=== PATIENT | female | born 1965 | race Caucasian/White ===

== ENCOUNTER → 2017-10-16 | Outpatient (CLI) | payer OTHER ==
[~2017-10-16] MED LIST: HYDACE5 PO; NAPR500 PO
[2017-10-16 16:33] LABS: Free Thyroxine 0.91 ng/dL (0.70-1.60); Thyroid Stimulating Hormone 2.222 uIU/mL (0.360-4.800)
== END | disposition home or self-care (01) ==
LOC: LAB SHORT 16:03 → LAB EV 16:03
PROVIDERS: Internal Medicine
DX: R63.5 Abnormal weight gain (principal)
CPT/HCPCS: 84439; 84443

== ENCOUNTER 2022-08-09 05:01 | Inpatient (IN) | payer OTHER ==
[~2022-08-09] VITALS: Ht 149.9 cm; Wt 69.0 kg
[2022-08-09 05:36] LABS: BASOPHILS PERCENT AUTO 1 % (0-2); EOSINOPHILS PERCENT AUTO 3 % (0-6); Hematocrit 47.8 % (33.0-51.0); Hemoglobin 16.5 g/dL (11.5-16.0); IMMATURE GRAN ABSOLUTE AUTO 0.02 K/mm3 (0.00-0.10); IMMATURE GRAN PERCENT AUTO 0 % (0-1); LYMPHOCYTES PERCENT AUTO 48 % (21-46); MONOCYTES ABSOLUTE AUTO 0.59 K/mm3 (0.16-1.47); MONOCYTES PERCENT AUTO 6 % (4-13); Mean Corpuscular HGB 32.7 pg (26.0-34.0); Mean Corpuscular HGB Conc 34.5 g/dL (31.5-36.5); Mean Corpuscular Volume 95 fL (80-100); Mean Platelet Volume 9.3 fL (9.1-12.4); NEUTROPHILS PERCENT AUTO 41 % (41-73); Platelet Count 351 K/mm3 (150-400); RDW Coefficient Variation 13.2 % (11.7-14.2); RDW Standard Deviation 46.5 fL (35.1-46.3); Red Blood Cell Count 5.05 M/mm3 (3.80-5.20); White Blood Cell Count 9.71 K/mm3 (4.00-11.30)
[2022-08-09 06:11] LABS: Influenza A, PCR NEGATIVE (NEGATIVE); Influenza B, PCR NEGATIVE (NEGATIVE); Resp Syncytial Virus, PCR NEGATIVE (NEGATIVE); SARS-Cov-2 (COVID-19) PCR, MMC NEGATIVE (NEGATIVE)
[2022-08-09 06:13] LABS: Alanine Aminotransfer (ALT/SGP 26 U/L (12-78); Albumin, Blood 3.8 g/dL (3.4-5.0); Alk Phos 94 U/L (50-136); Anion Gap 9 mmol/L (6-16); Aspartate Aminotrans (AST/SGOT 23 U/L (12-37); Bilirubin, Total 0.2 mg/dL (0.1-1.0); Blood Urea Nitrogen 14 mg/dL (8-24); Bun/Creatinine Ratio 19.7 (12.0-20.0); CO2, Blood 21 mmol/L (21-32); Calcium, Blood 9.2 mg/dL (8.5-10.1); Chloride, Blood 111 mmol/L (98-108); Creatinine, Blood 0.71 mg/dL (0.40-1.00); Ethanol (Alcohol), Blood, Med <3 mg/dL; Globulin, Blood 3.8 g/dL (2.2-4.0); Glomerular Filtration Rate 100 (60-); Glucose, Blood 123 mg/dL (70-99); Potassium, Blood 4.4 mmol/L (3.5-5.5); Sodium, Blood 141 mmol/L (136-145); Total Protein, Blood 7.6 g/dL (6.4-8.2)
[2022-08-09 10:23] LABS: International Normalized Ratio 1.09; Prothrombin Time Results 11.4 Sec (9.7-11.5)
[2022-08-09 10:32] LABS: CHOL/HDL RATIO 5.3; Cholesterol 221 mg/dL (50-200); HDL Cholesterol 42 mg/dL (>39); LDL/HDL RATIO 3.9; Low Density Lipoprotein Chol 163 mg/dL (0-110); Triglycerides 78 mg/dL (30-160); Very Low Density Lipoprot Chol 15 mg/dL (6-32)
[2022-08-09 15:32] LABS: U Amphetamine Screen Not Detected; U Barbituate Screen Not Detected; U Benzodiazapine Screen Not Detected; U Buprenorphine Screen Not Detected; U Cannabinoids Screen DETECTED; U Cocaine Screen Not Detected; U Methadone Screen Not Detected; U Methamphetamine Screen Not Detected; U Opiates Screen Not Detected; U Oxycodone Screen Not Detected; U Phencyclidine Screen Not Detected; U Propoxyphene Screen Not Detected
--- NOTE | 2022-08-09 18:35 | NUR ---
END OF SHIFT SUMMARY NEURO: A/O X4, TEARFUL AT TIMES, OVERWHELMED WITH DIAGNOSIS BUT CALMS WITH DISCUSSION. CARDIAC: SR, ECTOPY NOTED, REPORTED TO DR. SHIELDS W/NO NEW ORDERS. EKG DONE UPON ARRIVAL FROM ACADEMIC ADMINISTRATOR. BP WNL. COREG STARTED. RESP: ROOM AIR, LUNGS CTA, O2 SAT > 95% GI: DENIES NAUSEA, POOR APPETITE, DRINKING FLUIDS. DIET TEACHING DONE BY THIS RN AND BY DR. MONZON. : VOIDING CLEAR YELLOW URINE. OOB TO COMMODE SEVERAL TIMES. SKIN: INTACT. SEE CARDIAC CATHETERIZATION FLOWSHEET FOR TR BAND DOCUMENTATION. SON TO BEDSIDE, UPDATED ON CURRENT MEDICAL CONDITION AND POC. ALL QUESTIONS ANSWERED.
--- NOTE | 2022-08-09 21:32 | NUR ---
ASSUMED CARE ASSUMED CARE AT 1900. PT A/O X 4. CALM AND COOPERATIVE W/ CARE. R RADIAL SITE COVERED W/ CLEAR TEGADERM. MINIMAL BRUISING/BLEEDING NOTED. ARM BOARD IN PLACE. DENIES CHEST OR ABD PAIN. PT C/O ANXIETY AND RESTLESSNESS. DISCUSSED W/ RESIDENT AND ORDERS RECEIVED. ON RA. SR RATE 60-70'S. SBP 140'S. BRP WITH SB ASSIST. NS AT 100ML/HR. SON AT BEDSIDE.
[2022-08-10 05:03] LABS: BASOPHILS ABSOLUTE AUTO 0.06 K/mm3 (0.00-0.23); BASOPHILS PERCENT AUTO 1 % (0-2); EOSINOPHILS ABSOLUTE AUTO 0.13 K/mm3 (0.00-0.68); EOSINOPHILS PERCENT AUTO 2 % (0-6); Hemoglobin 13.5 g/dL (11.5-16.0); IMMATURE GRAN ABSOLUTE AUTO 0.01 K/mm3 (0.00-0.10); IMMATURE GRAN PERCENT AUTO 0 % (0-1); LYMPHOCYTES ABSOLUTE AUTO 2.13 K/mm3 (0.84-5.20); LYMPHOCYTES PERCENT AUTO 33 % (21-46); MONOCYTES ABSOLUTE AUTO 0.46 K/mm3 (0.16-1.47); MONOCYTES PERCENT AUTO 7 % (4-13); Mean Corpuscular HGB 32.8 pg (26.0-34.0); Mean Corpuscular HGB Conc 33.8 g/dL (31.5-36.5); Mean Corpuscular Volume 97 fL (80-100); Mean Platelet Volume 9.5 fL (9.1-12.4); NEUTROPHILS ABSOLUTE AUTO 3.77 K/mm3 (1.96-9.15); NEUTROPHILS PERCENT AUTO 57 % (41-73); Platelet Count 274 K/mm3 (150-400); RDW Coefficient Variation 13.3 % (11.7-14.2); RDW Standard Deviation 47.8 fL (35.1-46.3); Red Blood Cell Count 4.12 M/mm3 (3.80-5.20); White Blood Cell Count 6.56 K/mm3 (4.00-11.30)
[2022-08-10 05:21] LABS: Bilirubin, Total 0.5 mg/dL (0.1-1.0); Bun/Creatinine Ratio 10.2 (12.0-20.0); Calcium, Blood 8.5 mg/dL (8.5-10.1); Creatinine, Blood 0.59 mg/dL (0.40-1.00); Globulin, Blood 3.1 g/dL (2.2-4.0); Potassium, Blood 3.6 mmol/L (3.5-5.5); Total Protein, Blood 6.1 g/dL (6.4-8.2)
--- NOTE | 2022-08-10 05:31 | NUR ---
SHIFT SUMMARY NO ACUTE EVENTS T/O NIGHT. PT HAS TWO RUNS OF ASYMPTOMATIC SELF RESOLVING VTACH. PT DENIED CHEST PAIN T/O NIGHT. VSS. SR RATE 60-80'S. SBP 120'S. R RADIAL SITE UNCHANGED. ARM BOARD IN PLACE. UP TO BRP WITH MINIMAL ASSIST D/T CORD MANAGEMENT. ABLE TO SLEEP WELL AFTER ATIVAN ADMINISTRATION, PT REPORTS "FEELING BETTER" THIS AM. WILL REPORT OFF TO DAY SHIFT RN.
--- NOTE | 2022-08-10 07:32 | NUR ---
ASSUMED CARE OF PT AT 0715 BEDSIDE REPORT RECIEVED FROM ARIAN WATKINS. PT APPEARS TO BE RESTING COMFORTABLY AFTER MELATONIN AND 1 DOSE OF PO ATIVAN DURING THE NIGHT. PT IS A/OX4, ON ROOM AIR, IN A SR WITH OCCASIONAL ECTOPY, BP STABLE. DENIES NAUSEA, APPETITE IS DECREASED FROM BASELINE, VOIDING ON COMMODE, OOB TO CHAIR INDEPENDENTLY. PIV X2, BOTH SL. RN TO CONTINUE TO MONITOR.
--- NOTE | 2022-08-10 10:41 | NUR ---
SPOKE WITH DR. JULIA COLLINS TO D/C HOME FROM CARDIAC STANDPOINT. CALL PLACED TO DR. PACE TO INFORM HIM OF ABOVE. PT WISHES TO GO HOME TODAY. RECEIVED COUPON FOR KACIE FROM CARE MANAGEMENT, APPRECIATE ASSISTANCE. AWAITNG FURTHER ORDERS RE: DISCHARGE. RN TO CONTINUE TO MONITOR.
[2022-08-10] MEDS ORDERED: ATOR80 PO (11:38)
[2022-08-10] MEDS ORDERED: ASPI81CH PO (11:38)
[2022-08-10] MEDS ORDERED: TICA90TA PO (11:40)
[2022-08-10] MEDS ORDERED: CARV6.25 PO (11:40)
--- NOTE | 2022-08-10 12:40 | NUR ---
DISCHARGE TEACHING DONE PT HAS ORDER TO D/C HOME. DISCHARGE EDUCATION REVIEWED IN DETAIL WITH PT AND ALL QUESTIONS ANSWERED, SPECIFICALLY AFTERCARE FOR PCI, MEDICATION (BRILINTA) AND HEART HEALTHY DIET. PT INSTRUCTED TO CALL ICU IF THERE ARE ANY ISSUES WITH GETTING BRILINTA FROM THE PHARMACY TODAY. PT VERBALIZES UNDERSTANDING AND SIGNED D/C PAPERWORK.
--- NOTE | 2022-08-10 13:05 | NUR ---
DISCHARGE MEDICATIONS: PT CALLED STATING PHARMACY CANNOT FILL BRILINTA PRESCRIPTION DUE TO INSURANCE CONFLICT. CALL TO DR MONZON AND NEW ORDER OBTAINED FOR PLAVIX WITH INSTRUCTIONS TO LOAD THE PT WITH 300MG DOSE CORBIN, FOLLOWED BY 75MG DAILY, DISPENSE 30 DAY SUPPLY AND REFILL X3. THIS NEW RX WAS CALLED TO [facility] AND LEFT MESSAGE ON THEIR VOICEMAIL. CALL TO PT WITH NEW MEDICATION INFORMATION AND INSTRUCTIONS. PT VERBALIZES UNDERSTANDING OF IMPORTANCE OF TAKING FIRST DOSE OF 300MG CORBIN AND TO START 75MG DAILY TOMORROW WITH NO MISSED DOSES.
== END 2022-08-10 12:40 | disposition home or self-care (01) | DRG 247 ==
LOC: ER 05:01 → ICUW 07:43 → ICUE 07:43 → ER 07:43 → ICUE 08:03 → ICUW 08:10 → ICUE 09:31
PROVIDERS: Emergency Medicine; Family Medicine; Family Medicine Adult Medicine; Internal Medicine Cardiovascular Disease; Student in an Organized Health Care Education/Training Program; ADMIT Hospitalist
PROC: 027034Z Dilation of Coronary Artery, One Artery with Drug-eluting Intraluminal Device, Percutaneous Approach (ICD-10-PCS; principal; 2022-08-09)
PROC: 4A023N7 Measurement of Cardiac Sampling and Pressure, Left Heart, Percutaneous Approach (ICD-10-PCS; 2022-08-09)
PROC: 4A033BC Measurement of Arterial Pressure, Coronary, Percutaneous Approach (ICD-10-PCS; 2022-08-09)
PROC: B24BZZ3 Ultrasonography of Heart with Aorta, Intravascular (ICD-10-PCS; 2022-08-09)
PROC: B211YZZ Fluoroscopy of Multiple Coronary Arteries using Other Contrast (ICD-10-PCS; 2022-08-09)
PROC: B215YZZ Fluoroscopy of Left Heart using Other Contrast (ICD-10-PCS; 2022-08-09)
DX: I21.4 Non-ST elevation (NSTEMI) myocardial infarction (principal); Z20.822 Contact with and (suspected) exposure to COVID-19; Z28.21 Immunization not carried out because of patient refusal; E78.5 Hyperlipidemia, unspecified; I44.7 Left bundle-branch block, unspecified; F10.10 Alcohol abuse, uncomplicated; I10 Essential (primary) hypertension; F17.210 Nicotine dependence, cigarettes, uncomplicated; Z71.6 Tobacco abuse counseling; Z71.41 Alcohol abuse counseling and surveillance of alcoholic; Z79.899 Other long term (current) drug therapy
CPT/HCPCS: 0241U; 36415; 71046; 76937; 80053; 80061; 83036; 83690; 84443; 84484; 85025; 85347; 85610; 93005; 93010; 93306; 93458; 93571; 96374; 96375; 99152; 99153; 99291-25; A9270; C1725; C1769; C1874; C1887; C1894; C9600; G0480; J1630; J1644; J1885; J2250; J2405; J3010; J7030; J7050; Q9967

== ENCOUNTER → 2025-02-07 | Outpatient (CLI) | payer OTHER ==
[~2025-02-07] MED LIST changes: +ASPI81CH PO; +ATOR80 PO; +CARV6.25 PO; +TICA90TA PO
[2025-02-07 17:23] LABS: Bacterial Vaginosis PCR Negative (NEGATIVE); Candida glabrata-krusei, PCR NOT DETECTED (NOT DETECT)
[2025-02-07 17:35] LABS: Candida Group, PCR DETECTED (NOT DETECT)
== END ==
LOC: LAB SHORT 12:00 → LAB 12:00
DX: N89.8 Other specified noninflammatory disorders of vagina (principal)
CPT/HCPCS: 81515

== ENCOUNTER → 2025-02-22 | Outpatient (CLI) | payer OTHER ==
[2025-02-22 19:08] LABS: Chlamydia Trachomatis Urine NOT DETECTED (NOT DETECT); Neisseria Gonorrhoea Urine NOT DETECTED (NOT DETECT)
== END ==
LOC: LAB SHORT 15:53 → LAB 15:53
DX: Z11.3 Encounter for screening for infections with a predominantly sexual mode of transmission (principal); A59.01 Trichomonal vulvovaginitis
CPT/HCPCS: 87491; 87591

== ENCOUNTER → 2025-05-27 | Outpatient (CLI) | payer OTHER ==
[2025-05-27 16:12] LABS: Bacterial Vaginosis PCR Negative (NEGATIVE); Candida Group, PCR NOT DETECTED (NOT DETECT); Candida glabrata-krusei, PCR NOT DETECTED (NOT DETECT)
== END | disposition home or self-care (01) ==
LOC: LAB SHORT 13:20 → LAB 13:20
DX: Z11.3 Encounter for screening for infections with a predominantly sexual mode of transmission (principal); N89.8 Other specified noninflammatory disorders of vagina; A59.9 Trichomoniasis, unspecified
CPT/HCPCS: 81515